=== PATIENT | male | born 1965 | race Caucasian/White ===

== ENCOUNTER 2016-11-04 23:29 | Observation (INO) ==
[2016-11-04] MEDS ORDERED: *HR* HYDROmorphone (PF) 1 MG/ML SYRINGE IVP ONE (23:53)
[2016-11-04] MEDS ORDERED: Ondansetron 4 MG/2 ML VIAL IVP ONE (23:53)
--- NOTE | 2016-11-05 00:12 | Emergency Department Note ---
Disposition Clinical Impression: Pneumonia Qualifiers: Pneumonia type: due to other aerobic Gram-negative bacteria Laterality: bilateral Lung location: lower lobe of lung Qualified Code(s): J15.6 - Pneumonia due to other aerobic Gram-negative bacteria Disposition: Admitted As Inpatient Condition: Fair Time of Disposition: 01:52 Abdominal Pain HPI - General Chief Complaint: ED Abdominal Pain Stated Complaint: rt sided abd pain Time Seen by Provider: 11/04/16 23:53 Source: patient, EMS Mode of arrival: EMS Limitations: no limitations Nursing Notes Reviewed: Yes Vital Signs Reviewed: Yes - History of Present Illness HPI Narrative: 50-year-old male presents to the ED complaining of right upper quadrant abdominal pain as well as umbilical pain. He states he did have a fever a few days ago and treated with Tylenol as well as 5 episodes of vomiting. Patient is a dialysis patient that he gets them 3 times weekly Wednesday, Wednesday, . He did go to dialysis on Wednesday and said after that was when he was nauseous and had a fever. He did vomit 5 times. There was nonbilious and nonbloody. He has not felt well since then and skipped his dialysis appointment on Wednesday. States that today he had right upper quadrant pain as 7 out of 10 sharp and stabbing radiating into the right shoulder is not taking anything for pain. He says is not really eat or drink anything as it just does not sound good him. He did have his umbilical hernia fixed approximately 5 years ago here to [place] but does not remember the surgeon that did it. He said approximately 1-2 years after the surgery the hernia repot up in the same place. Today it is red and he is also complaining of the umbilical pain it is 10 out 10 pain that is also radiating to the right upper quadrant and right shoulder as well. Again he is not having any nausea or vomiting at this time, no fevers, no headaches or blurry vision, he is not have any diarrhea or constipation. Patient was in the hospital for C. difficile and developed a DVT and says he is on Coumadin. As a dialysis patient from polycystic kidney disease has been on dialysis for [address] Stewart. He has also had an MO approximate 5 years ago but said he did not get any stents. Pain Scale: 10 - Related Data Home Medications Medication Instructions Recorded Confirmed Albuterol Sulfate [Proair 90 mcg IH Q4-6H PRN 09/07/15 11/05/16 Respiclick] Calcium Acetate 600 mg PO TID 09/07/15 11/03/16 Furosemide [Lasix] 80 mg PO BID 09/07/15 11/05/16 Gabapentin [Neurontin] 800 mg PO QID 09/07/15 11/05/16 Omeprazole [PriLOSEC] 40 mg PO BID 09/07/15 11/05/16 Tiotropium [Spiriva] 18 mcg IH DAILY PRN 09/07/15 11/05/16 Warfarin [Coumadin] 6 mg PO DAILY 09/07/15 11/05/16 OxyCODONE/APAP 10/325 [Percocet 1 each PO Q6HR PRN 06/20/16 11/05/16 10/325 MG] Gemfibrozil [Lopid] 300 mg PO HS 11/05/16 11/05/16 Gemfibrozil [Lopid] 600 mg PO DAILY 11/05/16 11/05/16 Rosuvastatin [Crestor] 10 mg PO HS 11/05/16 11/05/16 Tizanidine HCl [Zanaflex] 4 mg PO TID 11/05/16 11/05/16 Allergies Allergy/AdvReac Type Severity Reaction Status Date / Time Amoxicillin [From Augmentin] Allergy Intermediate Hives Verified 06/20/16 15:16 Buspirone [From BuSpar] Allergy Intermediate Hives Verified 06/20/16 15:16 clavulanic acid Allergy Intermediate Hives Verified 06/20/16 15:16 [From Augmentin] Constitutional: Denies: fever, chills, weakness, weight change Eyes: Denies: eye pain, eye discharge, vision change ENT ED: Denies: ear pain, throat pain, dental pain, hearing loss, epistaxis, congestion, dysphagia Cardiovascular: Denies: chest pain, palpitations, dyspnea on exertion, edema, syncope Respiratory: Denies: cough, dyspnea, wheezes, hemoptysis, stridor Gastrointestinal: Reports: abdominal pain. Denies: nausea, vomiting, diarrhea, constipation, hematemesis, melena, hematochezia Genitourinary: Denies: urgency, dysuria, frequency, hematuria Musculoskeletal: Denies: back pain, neck pain, arthralgia, myalgia Integumentary: Denies: rash, abrasion, lesions Neurological: Denies: headache, weakness, numbness, paresthesias, confusion, abnormal gait, vertigo Endocrine: Denies: fatigue Hematological/Lymphatic: Denies: easy bleeding, easy bruising Allergic/Immunologic: Reports: as per HPI Abdominal Pain PMH - Past Medical History Medical history: Reports: COPD, myocardial infarction, renal disease Male Surgical History: Reports: no surgical history, herniorrhaphy, other Psychiatric history: Reports: no psych history - Social History Smoking status: Current every day smoker Alcohol use: Reports: none Drug use: Reports: marijuana Physical Exam - General Limitations: no limitations General appearance: alert, in no apparent distress - Head Head exam: atraumatic, normocephalic, normal inspection - Eye Eye exam: Present: normal appearance, PERRL, EOMI - ENT ENT exam: normal exam, normal oropharynx, mucous membranes moist - Neck Neck exam: Present: normal inspection, full ROM, trachea midline - Chest Chest inspection: Present: normal inspection, symmetric chest wall rise - Respiratory Respiratory exam: Present: normal lung sounds bilaterally - Cardiovascular Cardiovascular exam: Present: regular rate, normal rhythm, normal heart sounds - Abdominal Exam Abdominal exam: Present: soft, tenderness, guarding, normal bowel sounds, tenderness at McBurney's Point, hernia (Umbilical hernia that is red on the hernia and tender to touch.). Absent: distention, rebound, rigidity Abdominal tenderness: Present: RUQ, moderate - Back Exam Back exam: Present: normal inspection, full ROM. Absent: tenderness, CVA tenderness (R), CVA tenderness (L) - Neurological Exam Neurological exam: Present: alert, oriented X3 - Skin Skin exam: Present: warm, dry, intact, normal color Course Course Narrative: 50-year-old male presented to the complaining of right upper quadrant and umbilical pain. He had an umbilical hernia partially 7 years ago and hernia did not hold 2 years after the procedure. He did have some nausea and vomiting. We will do basic abdominal laboratories including CBC, CMP, lactate, lipase. Because having a hard time breathing we will get a chest x-ray. EKG was also done because his dialysis patient as well as a PT/INR for him being on Coumadin. Because this is possibly infection a CT of his abdomen and pelvis with contrast would be best so weak contacted Dr. Davila his sprayer operator to let him know that we will be getting it with contrast and he agreed to this. Patient will be given A gram Dilaudid and Zofran for pain and nausea prophylaxis. Patient is agreeable to this plan. - Reevaluation(s) Reevaluation #1: Patient reevaluated and updated of his results which showed a bilateral pneumonia in the bases patient says he is still having a right upper quadrant pain. Gave him another half milligram of Dilaudid. I told him that because his hospital-acquired pneumonia he has due to being in dialysis would recommend him to be admitted for proper treatment. Patient agreed to this. Hospitalist call at this time. Time: 01:45 - Consultations Consultation #1: Spoke with Dr. Lacey who agreed to admit the patient. Time: 01:45 Vital Signs Temperature 98.0 F 11/04/16 23:32 Pulse Rate 75 11/04/16 23:32 Respiratory Rate 20 11/04/16 23:32 Blood Pressure 107/77 11/04/16 23:32 O2 Sat by Pulse Oximetry 95 11/04/16 23:32 Temperature 98.2 F 11/05/16 02:54 Pulse Rate 91 11/05/16 02:54 Respiratory Rate 18 11/05/16 02:54 Blood Pressure 123/71 11/05/16 02:54 O2 Sat by Pulse Oximetry 95 11/05/16 02:54 Oxygen Delivery Oxygen Delivery Room Air Abdominal Pain - MDM Narrative Medical decision making narrative: 50-year-old male presents to the ED complaining of right upper quadrant pain as well as umbilical pain that is radiating to the right shoulder. Patient skipped his dialysis on Wednesday because he was not feeling well and is also started on Wednesday after his dialysis appointment. He has dialysis due to polycystic kidney disease. He has been on it for 5 years. Bedside ultrasound was done and there is no signs of cholecystitis. Her pain gave him a half milligram of Dilaudid he said that was elevated and then the pain came back. CT scan did show a pneumonia but there were no other abdominal abnormalities. Chest x-ray also showed as well. Because patient gets dialysis is most likely is hospital-acquired pneumonia and he will require IV antibiotics for proper treatment. I spoke with the hospitalist Dr. Lacey agreed to admit the patient. She agrees is being admitted. He did have an elevated creatinine which was likely due to his missed dialysis on Wednesday. Patient was therapeutic on his INR. No EKG changes. We will start this patient on vancomycin and Levaquin due to his penicillin allergy. Patient located this plan. Patient is admitted at this time and is stable condition. Chest X-Ray 11/05/16 00:01 IMPRESSION: Bilateral airspace disease likely represents pneumonia. D/ / Quan Warner MD / Quan Warner MD Interpreting Provider: Quan Warner MD Abdomen/Pelvis CT 11/05/16 00:03 IMPRESSION: 1. Bibasilar atelectasis versus pneumonia. 2. Polycystic kidney disease. 3. Fatty umbilical hernia persists. D/ / Quan Warner MD / Quan Warner MD Interpreting Provider: Quan Warner MD - Medical Records Medical records reviewed: Yes I reviewed the patient's medical records. - Lab Data Lab results reviewed: Yes I reviewed the patient's lab results. Result diagrams: 11/05/16 00:53 11/05/16 00:53 Lab Results 11/05/16 11/05/16 11/05/16 Range/Units 00:19 00:53 00:53 WBC 6.3 (4.3-11.1) K/mcL RBC 2.94 L (4.19-5.50) M/mcL Hgb 9.4 L (12.9-16.9) g/dL Hct 28.2 L (37.5-50.1) % MCV 95.9 (83.0-100.0) fL MCH 32.0 (28.0-33.3) pg MCHC 33.3 (31.6-35.5) g/dL RDW 11.9 (11.5-14.5) % Plt Count 183 (140-400) K/mcL MPV 9.9 (9.4-12.4) fL Immature Gran % 0.6 (0-4) % Seg Neutrophils % 71.9 % Lymphocytes % 7.8 % Monocytes % 3.8 % Eosinophils % 15.4 % Basophils % 0.5 % Neutrophils # 4.5 (1.6-8.9) K/mcL Lymphocytes # 0.5 L (0.6-4.6) K/mcL Monocytes # 0.2 (0.0-1.3) K/mcL Eosinophils # 1.0 H (0.0-0.6) K/mcL Basophils # 0.0 (0.0-0.2) K/mcL Immature Plt Fraction 3.2 (1.1-6.1) % PT (9.4-12.1) Seconds INR Sodium 130 L (136-145) mEq/L Potassium 3.8 (3.5-4.5) mEq/L Chloride 90 L (98-109) mEq/L Carbon Dioxide 18 L (19-29) mEq/L BUN 84 H (8-26) mg/dL Creatinine 10.31 H (0.72-1.25) mg/dL Est GFR ( Amer) 6 L (> 60) Est GFR (Non-Af Amer) 5 L (> 60) BUN/Creatinine Ratio 8 (6-26) Glucose 85 (70-99) mg/dL Calculated Osmolality 295 (280-300) Lactic Acid (0.5-2.2) mmol/L Calcium 8.6 (8.6-10.8) mg/dL Total Bilirubin 0.5 (0.2-1.2) mg/dL Direct Bilirubin 0.2 (0.0-0.5) mg/dL Indirect Bilirubin 0.3 (0.0-1.2) mg/dL AST 9 (5-34) Units/L ALT 7 (0-55) Units/L Alkaline Phosphatase 77 (38-126) Units/L Serum Total Protein 6.1 (6.0-8.3) g/dL Albumin 2.6 L (3.5-5.0) g/dL Globulin 3.5 (2.4-3.5) g/dL Albumin/Globulin Ratio 0.7 L (1.1-2.2) Lipase 15 (8-78) Units/L Urine Color Yellow (Yellow) Urine Clarity Clear (Clear) Urine pH 6.0 (5.0-8.0) pH Units Ur Specific [place] 1.012 (1.010-1.025) Urine Protein 30 H (Neg-Trace) mg/dL Urine Glucose (UA) Normal (Normal) mg/dL Urine Ketones Negative (Negative) mg/dL Urine Blood Trace H (Negative) Urine Nitrite Negative (Negative) Urine Bilirubin Negative (Negative) Urine Urobilinogen Normal (Normal) mg/dL Ur Leukocyte Esterase Negative (Negative) Urine Microscopic RBC Test Not Performed Urine Microscopic WBC 0-3 (0-3) per hpf Ur Squamous Epith Cells Few (None-Few) per lpf Urine Bacteria Few (None-Few) per hpf Hyaline Casts None Seen (None-Few) per lpf Ur Culture Indicated? NO (NO) 11/05/16 11/05/16 Range/Units 00:53 00:53 WBC (4.3-11.1) K/mcL RBC (4.19-5.50) M/mcL Hgb (12.9-16.9) g/dL Hct (37.5-50.1) % MCV (83.0-100.0) fL MCH (28.0-33.3) pg MCHC (31.6-35.5) g/dL RDW (11.5-14.5) % Plt Count (140-400) K/mcL MPV (9.4-12.4) fL Immature Gran % (0-4) % Seg Neutrophils % % Lymphocytes % % Monocytes % % Eosinophils % % Basophils % % Neutrophils # (1.6-8.9) K/mcL Lymphocytes # (0.6-4.6) K/mcL Monocytes # (0.0-1.3) K/mcL Eosinophils # (0.0-0.6) K/mcL Basophils # (0.0-0.2) K/mcL Immature Plt Fraction (1.1-6.1) % PT 31.3 H (9.4-12.1) Seconds INR 2.8 Sodium (136-145) mEq/L Potassium (3.5-4.5) mEq/L Chloride (98-109) mEq/L Carbon Dioxide (19-29) mEq/L BUN (8-26) mg/dL Creatinine (0.72-1.25) mg/dL Est GFR ( Amer) (> 60) Est GFR (Non-Af Amer) (> 60) BUN/Creatinine Ratio (6-26) Glucose (70-99) mg/dL Calculated Osmolality (280-300) Lactic Acid 1.6 (0.5-2.2) mmol/L Calcium (8.6-10.8) mg/dL Total Bilirubin (0.2-1.2) mg/dL Direct Bilirubin (0.0-0.5) mg/dL Indirect Bilirubin (0.0-1.2) mg/dL AST (5-34) Units/L ALT (0-55) Units/L Alkaline Phosphatase (38-126) Units/L Serum Total Protein (6.0-8.3) g/dL Albumin (3.5-5.0) g/dL Globulin (2.4-3.5) g/dL Albumin/Globulin Ratio (1.1-2.2) Lipase (8-78) Units/L Urine Color (Yellow) Urine Clarity (Clear) Urine pH (5.0-8.0) pH Units Ur Specific Blair (1.010-1.025) Urine Protein (Neg-Trace) mg/dL Urine Glucose (UA) (Normal) mg/dL Urine Ketones (Negative) mg/dL Urine Blood (Negative) Urine Nitrite (Negative) Urine Bilirubin (Negative) Urine Urobilinogen (Normal) mg/dL Ur Leukocyte Esterase (Negative) Urine Microscopic RBC Urine Microscopic WBC (0-3) per hpf Ur Squamous Epith Cells (None-Few) per lpf Urine Bacteria (None-Few) per hpf Hyaline Casts (None-Few) per lpf Ur Culture Indicated? (NO) - Radiology Data Radiology results reviewed: Yes I reviewed the patient's radiology results. - EKG Data EKG attestation: Yes I reviewed and interpreted this EKG. EKG results narrative: EKG done at 2338 and reviewed by myself and the attending. It shows a normal sinus rhythm at a rate of 74 bpm, TN interval 149, QRS 97, QTC 364 with a normal axis. There is no acute ST changes, T-wave changes. There are no signs of hypertrophy or heart strain. There are no signs of WPW/Brugada syndrome. This was compared to an old EKG done on 09/18/15 which also is a normal sinus rhythm with no acute changes. Overall impression is normal sinus rhythm with no acute changes. EKG shows normal: sinus rhythm, axis, intervals, QRS complexes, ST-T waves Rate: normal Rhythm: NSR [place]/QRS: normal When compared to previous EKG there are: no significant changes Interpretation: no acute changes, normal EKG, unchanged when compared to prior tracing (date) Attestation Statement - Attestation Attestation: I, Milan Cheek, examined this patient and my medical decision-making was reviewed with the AIR DEFENSE CONTROL OFFICER/PA/Advanced Practice Nurse/Resident Physician. I agree with the documented findings, disposition and treatment plan as described except to the extent set forth below. 50-year-old male presents emergency Department with concerns of right upper quadrant pleuritic pain. Patient states he had a fever present on the past few days however he does not have one in the emergency department secondary to antipyretic use. Patient states the pain worsened within the past 24 hours. He also describes having umbilical tenderness to palpation with surrounding erythema. CT of the abdomen and pelvis shows a fat-containing umbilical hernia however there is no involvement of the bowel. He does not show evidence of colitis or diverticulitis. CT and x-ray both show likely pneumonia of the lower lung lobes. Patient was hypoxic in the emergency department at rest. He will be started on antibiotics in emergency department and admitted for treatment of pneumonia. Patient's pain and right upper quadrant is likely secondary to pleuritic pain of the diaphragm.
[2016-11-05 00:39] LABS: Bilirubin,Urine Negative (Negative); Blood,Urine Trace (Negative); Clarity,Urine Clear (Clear); Color,Urine Yellow (Yellow); Glucose,Urine (UA) Normal (Normal); Ketones,Urine Negative (Negative); Leukocyte Esterase,Urine Negative (Negative); Nitrite,Urine Negative (Negative); Protein,Urine 30 mg/dL (Neg-Trace); Specific Gravity,Urine 1.012 (1.010-1.025); Urobilinogen,Urine Normal (Normal)
[2016-11-05 00:48] LABS: Squamous Epithelial Cell,Urine Few per lpf (None-Few)
[2016-11-05 00:49] LABS: Bacteria,Urine Few per hpf (None-Few); Hyaline Casts,Urine None Seen per lpf (None-Few); WBC,Urine 0-3 per hpf (0-3)
[2016-11-05 01:02] LABS: Basophils % 0.5 %; Eosinophils % 15.4 %; Hematocrit 28.2 % (37.5-50.1); Hemoglobin 9.4 g/dL (12.9-16.9); Immature Granulocytes % 0.6 % (0-4); Immature Platelets 3.2 % (1.1-6.1); Lymphocytes # 0.5 K/mcL (0.6-4.6); Lymphocytes % 7.8 %; Mean Corpuscular HGB Conc 33.3 g/dL (31.6-35.5); Mean Corpuscular Volume 95.9 fL (83.0-100.0); Mean Platelet Volume 9.9 fL (9.4-12.4); Monocytes # 0.2 K/mcL (0.0-1.3); Monocytes % 3.8 %; Neutrophils # 4.5 K/mcL (1.6-8.9); Platelet Count 183 K/mcL (140-400); Red Blood Count 2.94 M/mcL (4.19-5.50); Red Cell Distribution Width 11.9 % (11.5-14.5); Segmented Neutrophils % 71.9 %
[2016-11-05 01:06] LABS: INR 2.8; Prothrombin Time 31.3 Seconds (9.4-12.1)
[2016-11-05 01:20] LABS: Albumin 2.6 g/dL (3.5-5.0); Albumin/Globulin Ratio 0.7 (1.1-2.2); Bilirubin,Direct 0.2 mg/dL (0.0-0.5); Bilirubin,Indirect 0.3 mg/dL (0.0-1.2); Bilirubin,Total 0.5 mg/dL (0.2-1.2); Calcium 8.6 mg/dL (8.6-10.8); Globulin 3.5 g/dL (2.4-3.5); Potassium 3.8 mEq/L (3.5-4.5); Total Protein 6.1 g/dL (6.0-8.3)
[2016-11-05] MEDS ORDERED: *HR* HYDROmorphone (PF) 1 MG/ML SYRINGE IVP ONE (01:37)
[2016-11-05] MEDS ORDERED: Tiotropium 18 MCG inhalation IH PRN (01:58)
[2016-11-05] MEDS ORDERED: *HR* OxyCODONE/APAP 10/325 TABLET PO PRN (01:58)
[2016-11-05] MEDS ORDERED: Gabapentin 300 MG CAPSULE PO PRN (01:58)
[2016-11-05] MEDS ORDERED: Ipratropium/Albuterol Neb 3 ML IH PRN (02:03)
[2016-11-05] MEDS ORDERED: Naloxone 0.4 MG/ML INJ IVP PRN (02:05)
[2016-11-05] MEDS ORDERED: Levofloxacin 750 MG/150 ML 750 MG/150 ML BAG IVPB ONE ×2 (02:06→03:00)
[2016-11-05] MEDS ORDERED: Vancomycin 1,000 MG in D5% in Water 250 ML IVPB ONE (02:06)
[2016-11-05] MEDS ORDERED: 0.9 % Sodium Chloride 1,000 ML IVC SCH (02:15)
--- NOTE | 2016-11-05 02:21 | Internal Med History&Physical ---
Date of Encounter: 11/05/16 Time of Encounter: 02:18 Assessment and Plan (1) Pneumonia Current visit: Yes Status: Acute ED started Vanc and levaquin given PCN allergy for empiric HAP extended coverage. Renally dose. D/w ED RN to draw 2 sets blood cx prior to 1st dose antibiotics. Gentle IVF overnight. Watch to avoid overload. . HOld lasix Qualifiers: Pneumonia type: due to other aerobic Gram-negative bacteria Laterality: bilateral Lung location: lower lobe of lung Qualified Code(s): J15.6 - Pneumonia due to other aerobic Gram-negative bacteria (2) ESRD (end stage renal disease) Current visit: Yes Status: Acute ED d/w with Dr Stewart for HD in the a.m. Gets TTS hd (3) VTE (venous thromboembolism) Current visit: Yes Status: Acute on indefinite coumadin. trend INR and adjust accordingly. Gets 6mg daily per patient report Internal Medicine - H&P: HPI Chief complaint: Right side lung pain, RUQ pain, fever/chills History of present illness: Mr. Jesus is a 50 year old male who presents with symptoms of PNA reporting Right side lung pain, RUQ pain, fever/chills. He is getting TTSat HD (via [facility]) with Dr Stewart who developed symptoms since around wednesday. Over the weekend, developed fever up to 106 to 101 reported by patient. Noted fever and chills - reporting feeling hot and cold. He also had migratory pains all over but has now localized to the right lung are , right upper quad of abdo with some suggestion of right diaphragmatic irritation with referred pain to right shoulder. As a result of him not feeling well, his last HD was on wed and missed HD session wednesday. XR/XR chest 1V portable IMPRESSION: Bilateral airspace disease likely represents pneumonia. CT/CT abd pelvis w iv no oral IMPRESSION: 1. Bibasilar atelectasis versus pneumonia. 2. Polycystic kidney disease. 3. Fatty umbilical hernia persists. Past Med Surg Social Fam HX - Past Medical History Medical history: COPD, myocardial infarction, renal disease Psychiatric history: no psych history - Past Surgical History Surgical History: herniorrhaphy, other (AV shunt in the left upper extremity.) - Social History Smoking Status: Current every day smoker Smokeless Tobacco Status: No Alcohol use: none Drug use: marijuana - Additional Family History Additional family history: HTN Internal Medicine - H&P: Meds Albuterol Sulfate [Proair Respiclick] 90 mcg IH Q4-6H PRN 09/07/15 [History] Calcium Acetate 600 mg PO TID 09/07/15 [History] Furosemide [Lasix] 40 mg PO BID 09/07/15 [History] Gabapentin [Neurontin] 600 mg PO TID 09/07/15 [History] Omeprazole [PriLOSEC] 40 mg PO BID 09/07/15 [History] Tiotropium [Spiriva] 18 mcg IH DAILY PRN 09/07/15 [History] Warfarin [Coumadin] 8 mg PO DAILY 09/07/15 [History] OxyCODONE/APAP 10/325 [Percocet 10/325 MG] 1 each PO Q6HR PRN 06/20/16 [History] 3 Allergy/AdvReac Type Severity Reaction Status Date / Time Amoxicillin [From Augmentin] Allergy Intermediate Hives Verified 06/20/16 15:16 Buspirone [From BuSpar] Allergy Intermediate Hives Verified 06/20/16 15:16 clavulanic acid Allergy Intermediate Hives Verified 06/20/16 15:16 [From Augmentin] All Systems PM: A 10-system review of systems was performed and is negative for pertinent findings except as documented above in the HPI. Review of systems: ROS 14 point review of systems reviewed as best as possible given presentation. Pertinent positive or negative as per HPI or otherwise reviewed as negative - Constitutional Vitals: Temp Pulse Resp BP Pulse Ox 98.0 F 88 16 126/71 92 11/04/16 23:32 11/05/16 01:54 11/05/16 01:54 11/05/16 01:54 11/05/16 01:54 Exam: General - AAO x 3 Psych - Appropriate affect/speech. No agitation Eyes - CELINA. Eye lids intact. No scleral icterus Heart - Sinus. RRR. S1 and S2 present. No added HS/murmurs appreciated. No elevated JVD appreciated. Trace lower extremity edema Lung - Adequate air entry b/l, bibasilar crackles, no wheeze GI - Soft, non-tender. No hepatosplenomegaly/ascites. BS+ - No CVA/suprapubic tenderness or palpable bladder distension Skin - Intact. No rash/petechiae/ecchymosis. Warm extremities. Left upper extremity AV fistula Internal Med - H&P Results - Labs CBC & Chem 7: 11/05/16 00:53 11/05/16 00:53
[2016-11-05 02:55] VITALS: BP 123/71
[2016-11-05] MEDS ORDERED: Vancomycin 0 MG in D5% in Water 250 ML IVPB SCH (03:00)
[2016-11-05] MEDS ORDERED: Vancomycin 1,000 MG in D5% in Water 250 ML IVPB SCH (03:00)
[2016-11-05] MEDS ORDERED: Levofloxacin 750 MG/150 ML 750 MG/150 ML BAG IVPB SCH (03:00)
[2016-11-05 03:32] LABS: Basophils % 0.4 %; Eosinophils # 1.1 K/mcL (0.0-0.6); Eosinophils % 13.8 %; Hematocrit 30.5 % (37.5-50.1); Immature Granulocytes % 0.9 % (0-4); Lymphocytes # 0.6 K/mcL (0.6-4.6); Lymphocytes % 7.5 %; Mean Corpuscular HGB Conc 32.8 g/dL (31.6-35.5); Mean Corpuscular Hemoglobin 31.3 pg (28.0-33.3); Mean Corpuscular Volume 95.3 fL (83.0-100.0); Mean Platelet Volume 9.7 fL (9.4-12.4); Monocytes # 0.2 K/mcL (0.0-1.3); Monocytes % 2.8 %; Platelet Count 208 K/mcL (140-400); Red Cell Distribution Width 11.9 % (11.5-14.5); Segmented Neutrophils % 74.6 %
[2016-11-05 03:33] LABS: INR 3.1; Prothrombin Time 34.3 Seconds (9.4-12.1)
[2016-11-05 03:45] LABS: Calcium 9.2 mg/dL (8.6-10.8); Potassium 3.6 mEq/L (3.5-4.5)
[2016-11-05] MEDS ORDERED: Ipratropium/Albuterol Neb 3 ML IH SCH (04:00)
[2016-11-05] MEDS ORDERED: Vancomycin 1,250 MG in D5% in Water 250 ML IVPB ONE (04:00)
[2016-11-05] MEDS ORDERED: Aminoglycoside Consult 1 EACH MC ONE (07:11)
--- NOTE | 2016-11-05 07:12 | Event Note ---
Date of Encounter: 11/05/16 Time of Encounter: 07:12 Patient decided to sign out AMA after learning that hospital has a no-smoking policy. He is AAOx3 and has independent decision making capacity Provided him with levaquin script but discussed that his actions have led to suboptimal management of his healthcare with increase risk for morbidity and mortality.
[2016-11-05] MEDS ORDERED: Calcium Acetate 667 MG CAPSULE PO SCH (08:00)
[2016-11-05] MEDS ORDERED: Nicotine 21 MG PATCH.TD24 TD SCH (09:00)
--- NOTE | 2016-11-05 17:07 | Electrocardiograph Report ---
[place] [id number] Test Date: 2016-11-04 Pat Name: Cliff Jesus Department: 102 Room: 2A23 Gender: M Campground Caretaker: Anupama : 1965 Requested By: Hermann Cantrell Order Number: [id number] Reading MD: Duglas Lerner DO Measurements Intervals [place] Rate: 74 P: 21 WI: 149 QRS: 13 QRSD: 97 T: 33 QT: 337 QTc: 364 Interpretive Statements SINUS RHYTHM Electronically Signed On 11-05-2016 17:06:14 EDT by Duglas Lerner DO
[2016-11-05] MEDS ORDERED: *HR* Warfarin 3 MG TABLET PO SCH (18:00)
[2016-11-07] MEDS ORDERED: Levofloxacin 500 MG/100 ML 500 MG/100 ML BAG IVPB SCH (04:00)
== END 2016-11-05 07:12 | disposition left against medical advice (07) | DRG 140 ==
LOC: EMEROO 23:29 → 2ANU 23:29
PROVIDERS: ADMIT Internal Medicine Hematology & Oncology; ATTEND Internal Medicine

== ENCOUNTER 2018-07-28 17:09 | Observation (INO) | END 2018-07-28 19:10 | disposition left against medical advice (07) | LOC: 2NNU | PROVIDERS: ADMIT Internal Medicine Nephrology; ATTEND Internal Medicine Nephrology ==

== ENCOUNTER 2020-04-23 00:45 | Inpatient (IN) ==
[2020-04-23] MEDS ORDERED: Acetaminophen 325 MG TABLET PO PRN (02:20)
[2020-04-23] MEDS ORDERED: Naloxone 0.4 MG/ML INJ IVP PRN (02:20)
[2020-04-23] MEDS ORDERED: Ondansetron 4 MG/2 ML VIAL IVP PRN (02:20)
[2020-04-23 03:48] LABS: Basophils % 0.4 %; Eosinophils # 0.6 K/mcL (0.0-0.6); Eosinophils % 5.3 %; Hematocrit 37.5 % (37.5-50.1); Hemoglobin 12.2 g/dL (12.9-16.9); Immature Granulocytes % 0.5 % (0-4); Lymphocytes # 0.7 K/mcL (0.6-4.6); Lymphocytes % 6.5 %; Mean Corpuscular HGB Conc 32.5 g/dL (31.6-35.5); Mean Corpuscular Hemoglobin 30.3 pg (28.0-33.3); Mean Corpuscular Volume 93.3 fL (83.0-100.0); Mean Platelet Volume 9.3 fL (9.4-12.4); Monocytes # 0.8 K/mcL (0.0-1.3); Monocytes % 7.8 %; Neutrophils # 8.3 K/mcL (1.6-8.9); Platelet Count 139 K/mcL (140-400); Red Blood Count 4.02 M/mcL (4.19-5.50); Red Cell Distribution Width 15.1 % (11.5-14.5); Segmented Neutrophils % 79.5 %; White Blood Count 10.4 K/mcL (4.3-11.1)
[2020-04-23 04:05] LABS: INR 1.7
[2020-04-23 04:17] LABS: Calcium 9.2 mg/dL (8.6-10.3); Potassium 6.5 mEq/L (3.5-5.1)
[2020-04-23 04:18] LABS: Magnesium 1.6 mg/dL (1.6-2.6); Troponin I 0.08 ng/mL (< 0.04)
[2020-04-23] MEDS ORDERED: D5% in Water 1,000 ML IVC PRN (04:24)
[2020-04-23] MEDS ORDERED: Dextrose Gel 15 GM/37.5 ML TUBE PO PRN ×2 (04:24)
[2020-04-23] MEDS ORDERED: *HR* Dextrose 50 % in Water (Vial) 50 ML VIAL IVP PRN (04:24)
[2020-04-23] MEDS ORDERED: *HR* Dextrose 50 % in Water (Vial) 50 ML VIAL IVP ONE (04:30)
[2020-04-23] MEDS ORDERED: Insulin Human Regular 10 UNIT in 0.9 % Sodium Chloride 10 ML IV ONE (04:40)
[2020-04-23] MEDS ORDERED: Sodium Bicarbonate 150 MEQ in D5% in Water 1,000 ML IVC SCH (04:45)
[2020-04-23] MEDS ORDERED: Insulin LISPRO 300 UNITS/3 ML VIAL SUBQ SCH ×2 (06:00→21:00)
[2020-04-23] MEDS ORDERED: Vancomycin 1,500 MG/265 ML IV.SOLN IVPB ONE ×2 (06:00→16:00)
[2020-04-23] MEDS ORDERED: 0.9 % Sodium Chloride 250 ML IVC PRN (07:11)
[2020-04-23] MEDS ORDERED: 0.9 % Sodium Chloride 1,000 ML PRIME SCH (07:15)
[2020-04-23 07:21] LABS: Hepatitis B Surface Antibody < 3.10 mIU/mL
[2020-04-23 07:32] LABS: Hepatitis B Surface Antigen Nonreactive (Nonreactive)
[2020-04-23] MEDS ORDERED: Cefepime HCl 1,000 MG in Water for inj. (sterile) 10 ML IVP SCH ×2 (08:00→12:00)
[2020-04-23] MEDS: *HR* Heparin 5,000 UNIT/ML VIAL SQ SCH ×2 (14:16→20:00)
[2020-04-23] MEDS: D5% in Water 1,000 ML IVC SCH ×2 (14:17→20:00)
[2020-04-23] MEDS: Calcium Acetate 667 MG CAPSULE PO SCH ×2 (14:17→18:37)
[2020-04-23 15:32] LABS: Potassium 4.3 mEq/L (3.5-5.1); Troponin I 0.08 ng/mL (< 0.04)
[2020-04-24] MEDS: *HR* Heparin 5,000 UNIT/ML VIAL SQ SCH ×4 (02:09→21:42)
[2020-04-24] MEDS: D5% in Water 1,000 ML IVC SCH ×3 (02:09→17:32)
[2020-04-24 02:19] LABS: Hematocrit 33.7 % (37.5-50.1); Hemoglobin 10.9 g/dL (12.9-16.9); Mean Corpuscular HGB Conc 32.3 g/dL (31.6-35.5); Mean Corpuscular Hemoglobin 29.7 pg (28.0-33.3); Mean Corpuscular Volume 91.8 fL (83.0-100.0); Mean Platelet Volume 9.1 fL (9.4-12.4); Platelet Count 113 K/mcL (140-400); Red Blood Count 3.67 M/mcL (4.19-5.50)
[2020-04-24 02:40] LABS: Calcium 8.1 mg/dL (8.6-10.3); Potassium 4.8 mEq/L (3.5-5.1)
[2020-04-24] MEDS ORDERED: 0.9 % Sodium Chloride 250 ML IVC PRN (07:28)
[2020-04-24] MEDS ORDERED: Insulin LISPRO 300 UNITS/3 ML VIAL SUBQ SCH (07:30)
[2020-04-24] MEDS: Calcium Acetate 667 MG CAPSULE PO SCH ×3 (08:15→17:32)
[2020-04-24] MEDS ORDERED: Cefepime HCl 1,000 MG in Water for inj. (sterile) 10 ML IVP SCH (16:00)
[2020-04-24] MEDS ORDERED: Perflutren Lipid Microsphere 1.3 ML in 0.9 % Sodium Chloride 8.7 ML IVP PRN (18:16)
[2020-04-24 19:40] LABS: HIV-1&2 Antibody & p24 Ag Nonreactive (Nonreactive)
[2020-04-25] MEDS: D5% in Water 1,000 ML IVC SCH ×2 (01:57→11:11)
[2020-04-25 02:27] LABS: Basophils % 0.5 %; Eosinophils # 0.6 K/mcL (0.0-0.6); Eosinophils % 7.7 %; Hematocrit 35.5 % (37.5-50.1); Hemoglobin 11.3 g/dL (12.9-16.9); INR 1.6; Immature Granulocytes % 0.5 % (0-4); Lymphocytes # 0.5 K/mcL (0.6-4.6); Lymphocytes % 7.3 %; Mean Corpuscular HGB Conc 31.8 g/dL (31.6-35.5); Mean Corpuscular Hemoglobin 29.7 pg (28.0-33.3); Mean Corpuscular Volume 93.4 fL (83.0-100.0); Mean Platelet Volume 9.7 fL (9.4-12.4); Monocytes # 0.6 K/mcL (0.0-1.3); Monocytes % 7.4 %; Neutrophils # 5.7 K/mcL (1.6-8.9); Platelet Count 120 K/mcL (140-400); Prothrombin Time 18.4 Seconds (9.4-12.1); Red Cell Distribution Width 14.9 % (11.5-14.5); Segmented Neutrophils % 76.6 %; White Blood Count 7.4 K/mcL (4.3-11.1)
[2020-04-25 02:36] LABS: Calcium 8.2 mg/dL (8.6-10.3); Magnesium 1.4 mg/dL (1.6-2.6); Potassium 4.2 mEq/L (3.5-5.1)
[2020-04-25] MEDS: *HR* Heparin 5,000 UNIT/ML VIAL SQ SCH ×2 (05:01→11:55)
[2020-04-25] MEDS: Calcium Acetate 667 MG CAPSULE PO SCH ×2 (07:36→11:55)
[2020-04-25 09:07] LABS: HSV Source GENITAL
[2020-04-25 11:26] LABS: HSV 1 DNA DETECTED (Not Detect); HSV 2 DNA Not Detected (Not Detect)
[2020-04-25 12:03] VITALS: BP 135/86
[2020-04-25] MEDS ORDERED: valACYclovir 500 MG TABLET PO SCH (14:00)
[2020-04-25] MEDS ORDERED: Doxycycline 100 MG CAPSULE PO SCH (21:00)
== END 2020-04-25 15:24 | disposition home or self-care (01) | DRG 194 ==
LOC: 2ANU → OBSVTOIN 02:09 → SUATTDRO 02:09
PROVIDERS: ADMIT Internal Medicine; ATTEND Student in an Organized Health Care Education/Training Program

== ENCOUNTER 2020-05-09 23:47 | Inpatient (IN) ==
[2020-05-10] MEDS ORDERED: Naloxone 0.4 MG/ML INJ IVP PRN (03:22)
[2020-05-10] MEDS ORDERED: Ondansetron 4 MG/2 ML VIAL IVP PRN (03:22)
[2020-05-10] MEDS ORDERED: *HR* Heparin 5,000 UNIT/ML VIAL IVP PRN (03:29)
[2020-05-10] MEDS ORDERED: Perflutren Lipid Microsphere 1.3 ML in 0.9 % Sodium Chloride 8.7 ML IVP PRN (03:30)
[2020-05-10] MEDS: Heparin 25,000UNIT/250ML 1/2NS 25,000 UNIT/250 ML IV.SOLN IVC SCH (04:24)
[2020-05-10] MEDS: DilTIAZem 50 MG/50 ML IV.SOLN IVC SCH ×2 (04:24→12:03)
[2020-05-10] MEDS ORDERED: *HR* OxyCODONE Immed Rel 5 MG TABLET PO ONE (04:28)
[2020-05-10] MEDS ORDERED: Vancomycin 1,500 MG/265 ML IV.SOLN IVPB ONE (05:00)
[2020-05-10 05:13] LABS: Basophils # 0.1 K/mcL (0.0-0.2); Basophils % 1.8 %; Eosinophils # 0.7 K/mcL (0.0-0.6); Eosinophils % 10.2 %; Hematocrit 39.6 % (37.5-50.1); Hemoglobin 12.1 g/dL (12.9-16.9); Immature Granulocytes % 0.4 % (0-4); Lymphocytes # 0.8 K/mcL (0.6-4.6); Lymphocytes % 10.7 %; Mean Corpuscular HGB Conc 30.6 g/dL (31.6-35.5); Mean Corpuscular Hemoglobin 30.6 pg (28.0-33.3); Mean Platelet Volume 9.8 fL (9.4-12.4); Monocytes # 0.6 K/mcL (0.0-1.3); Monocytes % 8.1 %; Neutrophils # 4.8 K/mcL (1.6-8.9); Platelet Count 233 K/mcL (140-400); Red Blood Count 3.96 M/mcL (4.19-5.50); Red Cell Distribution Width 16.4 % (11.5-14.5); Segmented Neutrophils % 68.8 %
[2020-05-10 05:21] LABS: Heparin anti-factor XA UFH 0.39 IU/mL (0.30-0.70); INR 1.6; Prothrombin Time 18.8 Seconds (9.4-12.1)
[2020-05-10 05:30] LABS: Calcium 9.6 mg/dL (8.6-10.3); Potassium 5.2 mEq/L (3.5-5.1)
[2020-05-10 05:32] LABS: Troponin I 0.06 ng/mL (< 0.04)
[2020-05-10] MEDS ORDERED: *HR* Heparin 10,000 UNIT/10 ML VIAL IV PRN (07:09)
[2020-05-10] MEDS ORDERED: 0.9 % Sodium Chloride 250 ML IVC PRN (07:09)
[2020-05-10] MEDS ORDERED: 0.9 % Sodium Chloride 1,000 ML PRIME SCH (07:15)
[2020-05-10 11:39] LABS: Magnesium 1.6 mg/dL (1.6-2.6)
[2020-05-10 11:42] LABS: Thyroid Stimulating Hormone 6.212 mcIU/mL (0.340-5.600)
[2020-05-10] MEDS: valACYclovir 500 MG TABLET PO SCH (12:04)
[2020-05-10] MEDS: DilTIAZem CD (24hr) 120 MG CAP.ER.24H PO SCH (12:04)
[2020-05-10] MEDS: *HR* Heparin 5,000 UNIT/ML VIAL IVP PRN ×2 (12:20→19:08)
[2020-05-10] MEDS: Aspirin Enteric Coated 81 MG Tablet PO SCH (15:40)
[2020-05-10] MEDS: Acetaminophen 325 MG TABLET PO PRN (20:41)
[2020-05-11 01:56] LABS: Basophils # 0.1 K/mcL (0.0-0.2); Eosinophils # 0.6 K/mcL (0.0-0.6); Eosinophils % 8.9 %; Hemoglobin 11.6 g/dL (12.9-16.9); Immature Granulocytes % 0.4 % (0-4); Lymphocytes # 0.7 K/mcL (0.6-4.6); Lymphocytes % 10.3 %; Mean Corpuscular HGB Conc 31.4 g/dL (31.6-35.5); Mean Corpuscular Hemoglobin 30.3 pg (28.0-33.3); Mean Corpuscular Volume 96.6 fL (83.0-100.0); Monocytes # 0.7 K/mcL (0.0-1.3); Monocytes % 9.4 %; Neutrophils # 4.9 K/mcL (1.6-8.9); Platelet Count 219 K/mcL (140-400); Red Blood Count 3.83 M/mcL (4.19-5.50); Red Cell Distribution Width 16.6 % (11.5-14.5); White Blood Count 7.1 K/mcL (4.3-11.1)
[2020-05-11 02:16] LABS: Calcium 8.9 mg/dL (8.6-10.3); Phosphorous 3.9 mg/dL (2.7-4.5)
[2020-05-11] MEDS: Heparin 25,000UNIT/250ML 1/2NS 25,000 UNIT/250 ML IV.SOLN IVC SCH ×2 (02:37→19:24)
[2020-05-11] MEDS: *HR* Heparin 5,000 UNIT/ML VIAL IVP PRN (02:38)
[2020-05-11] MEDS: Acetaminophen 325 MG TABLET PO PRN ×3 (03:30→23:14)
[2020-05-11] MEDS: DilTIAZem 50 MG/50 ML IV.SOLN IVC SCH (04:18)
[2020-05-11] MEDS ORDERED: 0.9 % Sodium Chloride 250 ML IVC PRN (08:41)
[2020-05-11] MEDS: valACYclovir 500 MG TABLET PO SCH (09:00)
[2020-05-11] MEDS: DilTIAZem CD (24hr) 120 MG CAP.ER.24H PO SCH (09:00)
[2020-05-11] MEDS: Aspirin Enteric Coated 81 MG Tablet PO SCH (09:00)
[2020-05-11] MEDS ORDERED: ALPRAZolam 0.25 MG TABLET PO ONE (09:37)
[2020-05-12 00:49] LABS: Basophils # 0.2 K/mcL (0.0-0.2); Basophils % 2.2 %; Eosinophils # 0.8 K/mcL (0.0-0.6); Eosinophils % 11.5 %; Hematocrit 35.3 % (37.5-50.1); Hemoglobin 11.1 g/dL (12.9-16.9); Immature Granulocytes % 0.6 % (0-4); Lymphocytes # 0.8 K/mcL (0.6-4.6); Lymphocytes % 12.3 %; Mean Corpuscular HGB Conc 31.4 g/dL (31.6-35.5); Mean Corpuscular Hemoglobin 30.5 pg (28.0-33.3); Mean Platelet Volume 9.7 fL (9.4-12.4); Monocytes # 0.6 K/mcL (0.0-1.3); Monocytes % 8.3 %; Neutrophils # 4.4 K/mcL (1.6-8.9); Platelet Count 203 K/mcL (140-400); Red Blood Count 3.64 M/mcL (4.19-5.50); Red Cell Distribution Width 16.6 % (11.5-14.5); Segmented Neutrophils % 65.1 %; White Blood Count 6.8 K/mcL (4.3-11.1)
[2020-05-12 01:09] LABS: Calcium 8.5 mg/dL (8.6-10.3); Magnesium 1.8 mg/dL (1.6-2.6); Phosphorous 2.7 mg/dL (2.7-4.5); Potassium 4.6 mEq/L (3.5-5.1)
[2020-05-12] MEDS: *HR* Heparin 5,000 UNIT/ML VIAL IVP PRN ×2 (01:21→08:47)
[2020-05-12] MEDS ORDERED: ALPRAZolam 0.25 MG TABLET PO ONE (03:02)
[2020-05-12] MEDS ORDERED: ALPRAZolam 0.5 MG TABLET PO ONE (08:55)
[2020-05-12] MEDS: Metoprolol XL (24 HR) Succ 25 MG TAB.ER.24H PO SCH (09:35)
[2020-05-12] MEDS: Aspirin Enteric Coated 81 MG Tablet PO SCH (09:35)
[2020-05-12] MEDS: valACYclovir 500 MG TABLET PO SCH (09:35)
[2020-05-12] MEDS ORDERED: ALPRAZolam 0.25 MG TABLET PO PRN (10:45)
[2020-05-12] MEDS: *HR* OxyCODONE/APAP 5/325 TABLET PO PRN (14:48)
[2020-05-12] MEDS: Heparin 25,000UNIT/250ML 1/2NS 25,000 UNIT/250 ML IV.SOLN IVC SCH (19:18)
[2020-05-13 06:06] LABS: Basophils # 0.1 K/mcL (0.0-0.2); Basophils % 1.6 %; Eosinophils # 0.6 K/mcL (0.0-0.6); Eosinophils % 9.9 %; Hematocrit 38.7 % (37.5-50.1); Hemoglobin 11.8 g/dL (12.9-16.9); Immature Granulocytes % 0.6 % (0-4); Lymphocytes # 0.7 K/mcL (0.6-4.6); Lymphocytes % 10.8 %; Mean Corpuscular HGB Conc 30.5 g/dL (31.6-35.5); Mean Corpuscular Hemoglobin 31.1 pg (28.0-33.3); Mean Corpuscular Volume 102.1 fL (83.0-100.0); Mean Platelet Volume 10.8 fL (9.4-12.4); Monocytes # 0.7 K/mcL (0.0-1.3); Monocytes % 10.5 %; Neutrophils # 4.2 K/mcL (1.6-8.9); Platelet Count 114 K/mcL (140-400); Red Blood Count 3.79 M/mcL (4.19-5.50); Red Cell Distribution Width 17.2 % (11.5-14.5); Segmented Neutrophils % 66.6 %; White Blood Count 6.3 K/mcL (4.3-11.1)
[2020-05-13] MEDS ORDERED: 0.9 % Sodium Chloride 250 ML IVC PRN (07:33)
[2020-05-13] MEDS ORDERED: 0.9 % Sodium Chloride 1,000 ML PRIME SCH (07:45)
[2020-05-13] MEDS: Heparin 25,000UNIT/250ML 1/2NS 25,000 UNIT/250 ML IV.SOLN IVC SCH (08:00)
[2020-05-13] MEDS: Metoprolol XL (24 HR) Succ 25 MG TAB.ER.24H PO SCH (08:01)
[2020-05-13] MEDS: valACYclovir 500 MG TABLET PO SCH (08:01)
[2020-05-13] MEDS: Aspirin Enteric Coated 81 MG Tablet PO SCH (08:01)
[2020-05-13] MEDS ORDERED: *HR* Heparin 5,000 UNIT/ML VIAL IVP PRN ×2 (21:28)
[2020-05-13] MEDS ORDERED: Heparin 25,000UNIT/250ML 1/2NS 25,000 UNIT/250 ML IV.SOLN IVC SCH (21:30)
[2020-05-13 22:14] LABS: Hematocrit 38.5 % (37.5-50.1); Hemoglobin 12.2 g/dL (12.9-16.9); Mean Corpuscular HGB Conc 31.7 g/dL (31.6-35.5); Mean Corpuscular Hemoglobin 30.9 pg (28.0-33.3); Mean Corpuscular Volume 97.5 fL (83.0-100.0); Mean Platelet Volume 9.2 fL (9.4-12.4); Platelet Count 182 K/mcL (140-400); Red Blood Count 3.95 M/mcL (4.19-5.50); Red Cell Distribution Width 16.8 % (11.5-14.5); White Blood Count 7.2 K/mcL (4.3-11.1)
[2020-05-13 22:22] LABS: Heparin anti-factor XA UFH < 0.04 IU/mL (0.30-0.70)
[2020-05-13 22:23] LABS: INR 1.4; Prothrombin Time 16.4 Seconds (9.4-12.1)
[2020-05-13] MEDS: *HR* OxyCODONE/APAP 5/325 TABLET PO PRN (23:58)
[2020-05-14] MEDS: *HR* Heparin 5,000 UNIT/ML VIAL IVP PRN (05:33)
[2020-05-14] MEDS: Aspirin Enteric Coated 81 MG Tablet PO SCH (07:38)
[2020-05-14] MEDS: Metoprolol XL (24 HR) Succ 25 MG TAB.ER.24H PO SCH (07:38)
[2020-05-14] MEDS ORDERED: 0.9 % Sodium Chloride 250 ML IVC PRN (07:38)
[2020-05-14] MEDS: valACYclovir 500 MG TABLET PO SCH (07:38)
[2020-05-14] MEDS: *HR* OxyCODONE/APAP 5/325 TABLET PO PRN (07:44)
[2020-05-14 07:45] LABS: Basophils # 0.1 K/mcL (0.0-0.2); Basophils % 1.6 %; Eosinophils # 0.8 K/mcL (0.0-0.6); Eosinophils % 11.6 %; Hematocrit 35.7 % (37.5-50.1); Immature Granulocytes % 0.7 % (0-4); Lymphocytes # 0.7 K/mcL (0.6-4.6); Lymphocytes % 10.5 %; Mean Corpuscular HGB Conc 30.8 g/dL (31.6-35.5); Mean Corpuscular Hemoglobin 30.5 pg (28.0-33.3); Mean Corpuscular Volume 98.9 fL (83.0-100.0); Mean Platelet Volume 9.3 fL (9.4-12.4); Monocytes # 0.6 K/mcL (0.0-1.3); Monocytes % 8.4 %; Neutrophils # 4.6 K/mcL (1.6-8.9); Platelet Count 180 K/mcL (140-400); Red Blood Count 3.61 M/mcL (4.19-5.50); Red Cell Distribution Width 16.9 % (11.5-14.5); Segmented Neutrophils % 67.2 %; White Blood Count 6.9 K/mcL (4.3-11.1)
[2020-05-14] MEDS ORDERED: 0.9 % Sodium Chloride 1,000 ML PRIME SCH (07:45)
[2020-05-14 07:50] LABS: INR 1.4; Prothrombin Time 16.5 Seconds (9.4-12.1)
[2020-05-14 08:13] LABS: Troponin I 0.07 ng/mL (< 0.04)
[2020-05-14 08:14] LABS: Albumin 3.1 g/dL (3.5-5.7); Calcium 8.6 mg/dL (8.6-10.3); Potassium 4.9 mEq/L (3.5-5.1)
[2020-05-14 08:43] LABS: Triiodothyronine (T3) Total 0.63 ng/mL (0.87-1.78)
[2020-05-14 08:48] LABS: Activated Partial Thrombo Time 131.2 Seconds (26.0-36.0)
[2020-05-14] MEDS ORDERED: *HR* Heparin 5,000 UNIT/ML VIAL IVP PRN (10:03)
[2020-05-14] MEDS ORDERED: Metoprolol XL (24 HR) Succ 25 MG TAB.ER.24H PO ONE (11:00)
[2020-05-14 11:17] LABS: Folate 11.1 ng/mL (3.0-16.0)
[2020-05-14 13:26] VITALS: BP 125/90
[2020-05-15] MEDS ORDERED: Metoprolol XL (24 HR) Succ 50 MG TAB.ER.24H PO SCH (09:00)
[2020-05-15 21:48] LABS: Barbiturates NEGATIVE ng/mL (Cutoff 50); Buprenorphine NEGATIVE ng/mL (Cutoff 1); Methadone NEGATIVE ng/mL (Cutoff 25); Opiates NEGATIVE ng/mL (Cutoff 20); Phencyclidine NEGATIVE ng/mL (Cutoff 10)
[2020-05-16 06:20] LABS: Amphetamines POSITIVE ng/mL (Cutoff 20); Benzodiazepines POSITIVE ng/mL (Cutoff 50); Cocaine POSITIVE ng/mL (Cutoff 20); Methamphetamines POSITIVE ng/mL (Cutoff 20)
== END 2020-05-14 14:26 | disposition home or self-care (01) | DRG 190 ==
LOC: 2ANU → SUATTDRO 05-12 16:13 → UNDODISIN 05-13 09:48 → 2ANU 05-13 11:44
PROVIDERS: ADMIT Internal Medicine; ATTEND Student in an Organized Health Care Education/Training Program